=== PATIENT | female | born 2000 | race Caucasian/White ===

== ENCOUNTER → 2018-08-02 02:07 | Emergency (ER) | payer SELFPAY ==
[~2018-08-02 02:07] MED LIST: METOCLOPRAMIDE IV ONE; METOCLOPRAMIDE IVPB ONE; Metoclopramide IV* 5 MG/ML 2 ML VIAL IV SLOW PU ONE; NS 0.9% 1000 ML** 1,000 ML IV ONE; NS 0.9% IV ONE; NS 0.9% IVPB ONE
--- NOTE | 2018-08-02 02:28 | ED ---
Altered Mental Status - HPI Summary HPI Summary: The patient is a 19 year old female who is presenting to the [facility] with a chief complaint of EtOH intoxication. The patient states that she has had 6 to 8 drinks tonight. The patient drinks alcohol similarly on a weekly basis. She is currently N/V. The patient was reportedly found without shoes outside by the [place] police and was founding vomiting at the scene. She is currently barefoot , and alert and orientated in the [facility]. As per triage report, the patient stated that she has smoked marijuana. Symptoms are aggravated by nothing. Symptoms are alleviated by nothing. The pain is rated to be 0/10 in severity. - History Of Current Complaint Chief Complaint: EDSubstanceAbuse Stated Complaint: ETOH PER EMS Time Seen by Provider: 08/02/18 02:14 Hx Obtained From: Patient Onset/Duration: Still Present Timing: Constant Aggravating Factor(s): Nothing Alleviating Factor(s): Nothing Associated Signs And Symptoms: Positive: Nausea, Vomiting - Allergies/Home Medications Allergies/Adverse Reactions: Allergies Allergy/AdvReac Type Severity Reaction Status Date / Time No Known Allergies Allergy Verified 08/02/18 02:18 PMH/Surg Hx/FS Hx/Imm Hx Sensory History: Denies: Hx Deafness Opthamlomology History: Denies: Hx Legally Blind EENT History: Denies: Hx Deafness Infectious Disease History: No Infectious Disease History: Denies: Traveled Outside the [place] in Last 30 Days - Family History Known Family History: Positive: Non-Contributory Family History: Reviewed and Noncontributory - Social History Occupation: Student Lives: Dormitory/Roommates Alcohol Use: Weekly Substance Use Type: Reports: Marijuana Smoking Status (MU): Never Smoked Tobacco Review of Systems Constitutional: Negative Eyes: Negative ENT: Negative Cardiovascular: Negative Respiratory: Negative Positive: Vomiting, Nausea Genitourinary: Negative Musculoskeletal: Negative Skin: Negative Neurological: Other - Alert and Orientated Psychological: Other - Altered Mental State All Other Systems Reviewed And Are Negative: Yes Physical Exam - Summary Physical Exam Summary: VITAL SIGNS: Reviewed. GENERAL: Patient is a well-developed and nourished (FEMALE) who is currently vomiting. Patient is not in any acute respiratory distress. HEAD AND FACE: No signs of trauma. No ecchymosis, hematomas or skull depressions. No sinus tenderness. EYES: PERRLA, EOMI x 2, No injected conjunctiva, no nystagmus. EARS: Hearing grossly intact. Ear canals and tympanic membranes are within normal limits. MOUTH: Oropharynx within normal limits. NECK: Supple, trachea is midline, no adenopathy, no JVD, no carotid bruit, no c- spine tenderness, neck with full ROM. CHEST: Symmetric, no tenderness at palpation LUNGS: Clear to auscultation bilaterally. No wheezing or crackles. CVS: Regular rate and rhythm, S1 and S2 present, no murmurs or gallops appreciated. ABDOMEN: Soft, non-tender. No signs of distention. No rebound no guarding, and no masses palpated. Bowel sounds are normal. EXTREMITIES: FROM in all major joints, no edema, no cyanosis or clubbing. NEURO: Alert and oriented x 3. No acute neurological deficits. Speech is normal and follows commands. SKIN: Dry and warm Triage Information Reviewed: Yes Vital Signs On Initial Exam: Initial Vitals Temp Pulse Resp BP Pulse Ox 97.9 F 85 18 124/83 96 08/02/18 02:13 08/02/18 02:13 08/02/18 02:13 08/02/18 02:13 08/02/18 02:13 Vital Signs Reviewed: Yes Diagnostics - Vital Signs Vital Signs Temp Pulse Resp BP Pulse Ox 08/02/18 02:13 97.9 F 85 18 124/83 96 - Laboratory Lab Statement: Any lab studies that have been ordered have been reviewed, and results considered in the medical decision making process. Altered Mental Statu Course/Dx - Course Course Of Treatment: The patient is a 19 year old female who is presenting to the [facility] with a chief complaint of EtOH intoxication. The patient is currently vomitting. She was found by the [employer] vomiting at the time of their arrival as well. At this time she is alert and orientated. Patient has consumed 6 to 8 drinks. In the ED Course, the patient received Regalin for the nausea as well as fluids. The patient currently feels better and is no longer vomiting. The patient will be discharged home with a dx of Alcohol intoxication. - Diagnoses Provider Diagnoses: Alcohol intoxication Discharge - Sign-Out/Discharge Documenting (check all that apply): Patient Departure - Discharge Home Patient Received Moderate/Deep Sedation with Procedure: No - Discharge Plan Condition: Stable Disposition: HOME Patient Education Materials: Alcohol Intoxication (ED) Additional Instructions: RETURN TO THE EMERGENCY DEPARTMENT FOR CHANGING OR WORSENING SYMPTOMS. FOLLOW UP WITH YOUR PRIMARY CARE PROVIDER WITHIN 2 to 3 DAYS - Attestation Statements Document Initiated by Tiara: Yes Documenting Scribe: Valentin Sanchez Provider For Whom Tiara is Documenting (Include Credential): Dr. Morgan Chaney Scribe Attestation: IValentin, scribed for Dr. Morgan Chaney on 08/02/18 at 0346. Status of Scribe Document: Ready
[2018-08-02 03:31] VITALS: BP 110/65
== END | disposition home or self-care (01) ==
LOC: ED 02:07
DX: F10.129 Alcohol abuse with intoxication, unspecified (principal)
CPT/HCPCS: 96360; 96361; 99282; J2765